=== PATIENT | male | born 1980 | race Caucasian/White ===

== ENCOUNTER 2017-10-01 01:31 | Day surgery (SDC) | payer OTHER ==
[~2017-10-01] VITALS: Ht 177.8 cm; Wt 75.7 kg
[~2017-10-01 01:31] MED LIST: CHOL10005 PO; DIS250 PO; OMEP-137 PO; ONDA4TAB PO; OXYC-865 PO; PROM-110 PO; RANI-324 PO; SUCR1TAB85 PO; [UNRECOGNIZED DRUG - OTHER]
[2017-10-01] MEDS ORDERED: PROPOFOL EMUL(*) 10MG/ML 20 ML 40 ML ONE (07:26)
[2017-10-01 09:58] VITALS: BP 104/66
[2017-10-01] MEDS ORDERED: MIDAZOLAM 2 MG/2 ML VIAL IVP ONE (10:00)
[2017-10-01] MEDS ORDERED: LIDOCAINE/SOD BICARB 8.4% SYR ID ONE (10:00)
[2017-10-01] MEDS ORDERED: NORMOSOL R SOLN(*) 1000 ML BAG 1,000 ML IV PRN (10:00)
[2017-10-01 11:21] VITALS: BP 94/59
[2017-10-01] MEDS ORDERED: PANT40TA65 PO (11:23)
--- NOTE | 2017-10-01 11:23 | Post Operative Progress Note ---
Post Operative Progress Note Date: Oct 01, 2017 Time: 11:22 Surgeon: jannet Anesthesia: dr connors Pre-Op Diagnosis: epigastric pain Post-Op Diagnosis: proximal gastritis Procedure(s): egd with biopsy YASMIN LIU MD Oct 01, 2017 11:23
--- NOTE | 2017-10-01 11:24 | Short(Outpt) Discharge Summary ---
Discharge Summary Reason for Hosp/Final Diag: (1) Epigastric abdominal pain Status: Acute Hospital Course & Plan: proximal gastritis Departure Discharge to: Home Discharge Instructions Home Meds Active Scripts Ondansetron (ZOFRAN ODT) 4 Mg Tab.rapdis, 4 MG PO Q6H Y for NAUSEA, #20 TAB.ANA 0 Refills Prov:TIFFANIE GILES MD 07/05/17 Reported Medications Cholecalciferol (Vitamin D3) (VITAMIN D3) 1,000 Unit Tablet, 2000 UNIT PO QDAY, TAB 09/30/17 Disulfiram (ANTABUSE) 250 Mg Tab, 250 MG PO QDAY, TAB 09/30/17 Omeprazole (OMEPRAZOLE) 20 Mg Tablet.dr, 20 MG PO QDAY, TAB 09/30/17 Discontinued Reported Medications Ranitidine Hcl (ZANTAC) 150 Mg Tablet, 150 MG PO BID, TAB 07/03/17 [dulcafram] No Conflict Check 07/03/17 Discontinued Scripts Promethazine Hcl (PROMETHAZINE HCL) 25 Mg Tablet, 25 MG PO Q4H, #14 TAB Prov:WILTON KAUFMAN DO 07/07/17 Oxycodone Hcl/Acetaminophen (PERCOCET 5-325 MG TABLET) 1 Each Tablet, 1 EACH PO Q4-6H Y for pain, #10 Prov:WILTON KAUFMAN DO 07/07/17 Oxycodone Hcl/Acetaminophen (PERCOCET 5-325 MG TABLET) 1 Each Tablet, 1 EACH PO Q6H for PAIN, #15 TAB 0 Refills Prov:TIFFANIE GILES MD 07/05/17 Promethazine Hcl (PROMETHAZINE HCL) 25 Mg Tablet, 25 MG PO Q8H Y for NAUSEA/ VOMITING, #20 TAB 0 Refills Prov:SOWMYA DE LA CRUZ MD 07/03/17 Sucralfate (CARAFATE) 1 Gm Tablet, 1 GM PO QID, #60 TAB 0 Refills Prov:SOWMYA DE LA CRUZ MD 07/03/17 Diet: Regular Activity: As Tolerated YASMIN LIU MD Oct 01, 2017 11:24
[2017-10-01 11:28] VITALS: BP 99/60
[2017-10-01 11:45] VITALS: BP 107/67
[2017-10-01 12:05] VITALS: BP 112/76
[2017-10-01 12:07] VITALS: BP 125/89
--- NOTE | 2017-10-01 19:14 | OPERATIVE REPORT 1 ---
EVENT DATE: October 01, 2017 SURGEON: Olvin Vaz MD ANESTHESIOLOGIST: Js Patel MD ANESTHESIA: Sedation. PREOPERATIVE DIAGNOSIS Epigastric pain. POSTOPERATIVE DIAGNOSIS Proximal gastritis. PROCEDURE PERFORMED Esophagogastroduodenoscopy with biopsy. DESCRIPTION OF PROCEDURE The patient was placed in the left lateral decubitus position and given intravenous sedation. A flexible gastroscope was inserted. The esophagus appeared to be normal. It distended nicely. Nice pearly white mucosa. GE junction was right at 40 cm, distinct. No ulceration, no narrowings, no inflammation. We passed through the pylorus into the stomach, which was empty. We passed through the pylorus into the second and third portions of the duodenum, which were normal. The duodenal bulb was normal. The pylorus was normal. The antrum was normal. The body of the stomach was normal. We retroflexed the scope. Just distal to the GE junction, there was a 3 cm area that was inflamed and red. No ulcer could be seen. We took multiple biopsies. The procedure was then terminated. The patient tolerated the procedure well. No apparent complications. [facility]
== END 2017-10-01 12:25 | disposition home or self-care (01) ==
LOC: OR 01:31
PROVIDERS: ATTEND Surgery
DX: K29.70 Gastritis, unspecified, without bleeding (principal)
CPT/HCPCS: 43239; 88305; 88344; J2704